=== PATIENT | male | born 1945 | race Caucasian/White ===

== ENCOUNTER → 2018-07-29 | Outpatient (CLI) | payer OTHER ==
[~2018-07-29] MED LIST: ANTIVERT25 MG PO; ATIVAN1 MG PO; LISINOPRIL10 MG; MULTIVITAMINS; OMEGA-31000 M1; PAXIL10 MG; TENORMIN25 MG
== END ==
LOC: NUC 07:21
DX: R06.09 Other forms of dyspnea (principal); I10 Essential (primary) hypertension; E78.00 Pure hypercholesterolemia, unspecified; R93.1 Abnormal findings on diagnostic imaging of heart and coronary circulation; E78.5 Hyperlipidemia, unspecified; Z79.899 Other long term (current) drug therapy